=== PATIENT | female | born 1995 | race Caucasian/White ===

== ENCOUNTER 2016-10-20 08:14 | Emergency (ER) | payer OTHER ==
[~2016-10-20] VITALS: Ht 157.5 cm; Wt 76.1 kg
[2016-10-20 08:16] VITALS: Ht 157.5 cm; Wt 76.1 kg
[2016-10-20] MEDS ORDERED: SODI126M NASAL (08:54)
--- NOTE | 2016-10-20 09:01 | ERD ---
ER Documentation Chief Complaint Date/Time DATE: 10/20/16 TIME: 08:56 Chief Complaint has flu x 3 days HPI 21-year-old female complaining of cough and runny nose 1 week. Patient reports feeling "hot flashes" for the last 3 nights. She thinks that he she had a fever, but did not check her temperature. Cough is nonproductive. Patient is recently started OCP by her day camp counselor for controlling ovarian cysts. Patient reports irregular menstrual bleeding. Denies shortness of breath. Denies body aches. Denies abdominal pain, vomiting, diarrhea. ROS All systems reviewed and are negative except as per history of present illness. Medications Home Meds Active Scripts Sodium Chloride (Saline Nasal Mist) 126 Ml Mist, 2 SPRAY NASAL Q2H Y for NASAL CONGESTION, #1 BOTTLE Prov:DARIANHUSEYIN X. 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 Alert, oriented, in no acute distress Head: Normocephalic, atraumatic. Eyes: PERRL, EOM normal. Conjunctiva not injected. ENT: Nasal mucosa erythematous and swollen. Oral mucosa and oropharynx are normal. Neck: Supple, nontender. No lymphadenopathy. No nuchal rigidity. Respiration: Normal respiratory effort. Lungs clear to auscultate bilaterally. No wheezes, rales or rhonchi. Cardiovascular: Regular rate and rhythm. No murmurs or extra heart sounds. Abdomen: Abdomen normal to inspection. Nontender. No masses or organomegaly. Bowel sounds normal. Neuro: Mental status normal, speech normal. [employer] grossly intact. Skin: Normal turgor. No rash or lesions. Psych: Normal mood and affect. Procedures/MDM Patient is afebrile, in no respiratory distress. Lungs are clear to auscultate. I doubt that patient has pneumonia or bronchitis. Likely patient's symptoms are result of viral upper respiratory infection. I doubt the patient self-reported "hot flashes" is due to fever. I suspect it may be due to her OCP use. I suggested patient follow-up with her day camp counselor to have her OCP adjusted. Patient appears well, stable for discharge and outpatient management. Medical decision making shared with patient and family. Education provided to patient and family. Patient and family expressed understanding of the plan. Medications on discharge: Saline nasal spray. Follow-up: Primary care provider in 2-3 days or return to ED if worse. Departure Diagnosis: Primary Impression: Upper respiratory infection URI type: acute nasopharyngitis (common cold) Qualified Code: J00 - Acute nasopharyngitis Additional Impression: History of ovarian cyst Condition: Good Patient Instructions: Adult Self-Care for Colds Referrals: [facility] YOU HAVE RECEIVED A MEDICAL SCREENING EXAM AND THE RESULTS INDICATE THAT YOU DO NOT HAVE A CONDITION THAT REQUIRES URGENT TREATMENT IN THE EMERGENCY DEPARTMENT. FURTHER EVALUATION AND TREATMENT OF YOUR CONDITION CAN WAIT UNTIL YOU ARE SEEN IN YOUR DOCTORS OFFICE WITHIN THE NEXT 1-2 DAYS. IT IS YOUR RESPONSIBILITY TO MAKE AN APPOINTMENT FOR FOLOW-UP CARE. IF YOU HAVE A PRIMARY DOCTOR --you should call your primary doctor and schedule an appointment IF YOU DO NOT HAVE A PRIMARY DOCTOR YOU CAN CALL OUR PHYSICIAN REFERRAL HOTLINE AT IF YOU CAN NOT AFFORD TO SEE A PHYSICIAN YOU CAN CHOSE FROM THE FOLLOWING [facility] [address] [facility]. [facility] [address] [facility] [address] [facility] [facility] [address] [facility]. [facility] [address] [facility]. [facility]. [address] [facility] Hours: 8:00 am - 5:00 pm Additional Instructions: Call your primary care doctor TOMORROW for an appointment during the next 2-3 days.See the doctor sooner or return here if your condition worsens before your appointment time. HUSEYIN FARMER NP Oct 20, 2016 09:01
== END 2016-10-20 09:07 | disposition home or self-care (01) ==
LOC: FTE 08:14
DX: J00 Acute nasopharyngitis [common cold] (principal); Z87.898 Personal history of other specified conditions
CPT/HCPCS: 99283

== ENCOUNTER 2017-12-28 15:14 | Emergency (ER) | END 2017-12-28 15:40 | disposition home or self-care (01) ==